=== PATIENT | female | born 1950 | race Caucasian/White ===

== ENCOUNTER → 2025-02-05 | Outpatient (CLI) | payer OTHER ==
--- NOTE | 2025-02-05 11:56 | FL ---
EXAMINATION TYPE: FL barium swallow DATE OF EXAM: 02/05/2025 11:01 AM COMPARISON: None. CLINICAL INDICATION: Female, 74 years old with history of R13.19 OTHER DYSPHAGIA, patient with diffic ulty swallowing, epigastric pain, recent endoscopy that identified a hiatal hernia. Total fluoroscopy time 2 minutes 3 seconds. Total images: 100 Total DAP: 275 mGycm2. FINDINGS: The swallowing mechanism is normal and hypopharyngeal anatomy is preserved. Specifically, no CP muscl e hypertrophy is identified. The cervical and thoracic portions have a normal course and caliber. However, there is esophageal dysmotility with blunted secondary stripping waves and mild tertiary per istalsis. This results in prolonged pooling of contrast throughout the esophagus particularly when th e patient is prone/supine. The mucosa is normal and no persistent filling defect is encountered. There is a [id number]-hb-[id number] sized sliding hiatal hernia present with moderate gastroesophageal reflu x to the upper third chest level. IMPRESSION: 1. Osjyc-ce-xopczaim sized sliding hiatal hernia with moderate gastroesophageal reflux reaching to th e upper third chest level. 2. Moderate esophageal dysmotility. [facility], , 02/05/2025 11:54 AM
== END | disposition home or self-care (01) ==
LOC: RADFLMAIN 09:58
PROVIDERS: ATTEND Surgery Plastic and Reconstructive Surgery
DX: K44.9 Diaphragmatic hernia without obstruction or gangrene (principal); K22.4 Dyskinesia of esophagus; K21.9 Gastro-esophageal reflux disease without esophagitis
CPT/HCPCS: 74220